=== PATIENT | male | born 1990 | race Caucasian/White ===

== ENCOUNTER 2018-01-28 01:12 | Emergency (ER) | payer OTHER ==
[~2018-01-28] VITALS: Ht 172.7 cm; Wt 79.5 kg
[~2018-01-28 01:12] MED LIST: LORA10TA65 PO
[2018-01-28 01:36] VITALS: BP 139/84
== END 2018-01-28 02:12 ==
LOC: ER 01:12
DX: F10.129 Alcohol abuse with intoxication, unspecified (principal)
CPT/HCPCS: 99283